=== PATIENT | female | born 1940 | race Caucasian/White ===

== ENCOUNTER 2019-06-10 07:32 | Day surgery (SDC) | payer MEDICARE, BC ==
[~2019-06-10 07:32] MED LIST: Buffered Lidocaine 1% SYRIN* 1 ML/SYRINGE INTRADERM ONE
[2019-06-10] MEDS ORDERED: Midazolam* 1 MG/ML 2 ML VIAL (2 MG) ONE (09:36)
[2019-06-10 11:05] VITALS: BP 134/52
--- NOTE | 2019-06-10 12:31 | OP ---
DATE OF OPERATION: 06/10/19 [facility] DATE OF : 40 SURGEON: Willie Price M.D. PREOPERATIVE DIAGNOSIS: Cataract, right eye. POSTOPERATIVE DIAGNOSIS: Cataract, right eye. OPERATIVE PROCEDURE: Extracapsular cataract extraction with intraocular lens implant, right eye. DESCRIPTION OF PROCEDURE: The patient was brought to the operating room after being given 1/2% Alcaine with epinephrine drops in the preoperative area. The eye was prepped and draped in the usual sterile fashion. Sterile drape and eyelid speculum were placed. Again, topical 1/2% Alcaine with epinephrine was given. A paracentesis incision was made at the 9 o'clock position with the No.75 blade. Clear cornea incision 2.2 x 2.2-mm was created at the 12 o'clock position starting at the anterior limbus using the 2.2-mm keratome. The anterior chamber was irrigated with 0.4 mL of 1% non-preservative intracameral lidocaine and filled with DisCoVisc. A capsulorrhexis was completed using the cystotome and the Utrata forceps. Hydrodissection was performed with balanced salt solution. The lens nucleus was removed with the Phacoemulsification handpiece without incident. Cortex was removed with the irrigation-aspiration handpiece. The capsular bag was re-inflated using DisCoVisc and an SN60WF 21.5 implant was inserted with the shooter. The irrigation-aspiration handpiece was used to remove all residual DisCoVisc. The eye was refilled with balanced salt solution and the wound checked and found to be watertight. Topical Maxitrol drops were given. [id number]/[facility] #: [id number] MTDD
[2019-06-10] MEDS ORDERED: Cyclopentolate 1% OPTH.SOL* 2 ML BTL ONE (13:49)
[2019-06-10] MEDS ORDERED: Neomycin/Polymy/Dex OPTH.SUSP* MAXITROL 0.1% 5 ML ONE (13:49)
[2019-06-10] MEDS ORDERED: Lidocaine 1% MPF ** 5 ML VIAL ONE (13:49)
[2019-06-10] MEDS ORDERED: Povidone Iodine 5% OPTH* 30 ML BTL ONE (13:49)
[2019-06-10] MEDS ORDERED: acetaZOLAMIDE TAB* 250 MG ONE (13:49)
[2019-06-10] MEDS ORDERED: Ketorolac 0.5% OPHTH (NF) 0.5 % 5 ML BTL ONE (13:49)
[2019-06-10] MEDS ORDERED: Phenylephrine OPHTH SOL 2.5%* 2 ML ONE (13:49)
[2019-06-10] MEDS ORDERED: Lidocaine 2% w/ EPI 1:200,000* 20 ML SDV VIAL ONE (13:49)
[2019-06-10] MEDS ORDERED: Proparacaine 0.5% OPHTH.SOL* 15 ML BTL ONE (13:50)
== END 2019-06-10 10:47 | disposition home or self-care (01) ==
LOC: OREAST 07:32
PROVIDERS: ATTEND Specialist
DX: H25.811 Combined forms of age-related cataract, right eye (principal); H40.053 Ocular hypertension, bilateral; I10 Essential (primary) hypertension; E11.9 Type 2 diabetes mellitus without complications; Z79.84 Long term (current) use of oral hypoglycemic drugs
CPT/HCPCS: A9270-GY; J2250; V2632

== ENCOUNTER 2019-06-17 08:51 | Day surgery (SDC) | payer MEDICARE, BC ==
[2019-06-17] MEDS ORDERED: Midazolam* 1 MG/ML 2 ML VIAL (2 MG) ONE ×2 (11:02→11:25)
--- NOTE | 2019-06-17 12:25 | OP ---
OPERATIVE NOTE: DATE OF OPERATION: 06/17/19 DATE OF : 40 SURGEON: Willie Price M.D. PREOPERATIVE DIAGNOSIS: Cataract, left eye. POSTOPERATIVE DIAGNOSIS: Cataract, left eye. OPERATIVE PROCEDURE: Extracapsular cataract extraction with intraocular lens implant, left eye. PROCEDURE: The patient was brought to the operating room after being given 1/2% Alcaine with epineph rine drops in the preoperative area. The eye was prepped and draped in the usual sterile fashion. S terile drape and eyelid speculum were placed. Again, topical 1/2% Alcaine with epinephrine was given . A paracentesis incision was made at the 3 o'clock position with the No.75 blade. Clear cornea inc ision 2.2 x 2.2-mm was created at the 6 o'clock position starting at the anterior limbus using the 2. 2-mm keratome. The anterior chamber was irrigated with 0.4 mL of 1% non-preservative intracameral li docaine and filled with DisCoVisc. A capsulorrhexis was completed using the cystotome and the Utrata forceps. Hydrodissection was performed with balanced salt solution. The lens nucleus was removed wi th the Phacoemulsification handpiece without incident. Cortex was removed with the irrigation-aspira tion handpiece. The capsular bag was re-inflated using DisCoVisc and an [id number] 22 implant was inser olivia with the shooter. The irrigation-aspiration handpiece was used to remove all residual DisCoVisc. The eye was refilled with balanced salt solution and the wound checked and found to be watertight. Topical Maxitrol drops were given. [id number]/[facility] #: [id number]
[2019-06-17] MEDS ORDERED: Phenylephrine OPHTH SOL 2.5%* 2 ML ONE (13:13)
[2019-06-17] MEDS ORDERED: Lidocaine 1% MPF ** 5 ML VIAL ONE (13:13)
[2019-06-17] MEDS ORDERED: Lidocaine 2% w/ EPI 1:200,000* 20 ML SDV VIAL ONE (13:13)
[2019-06-17] MEDS ORDERED: Ketorolac 0.5% OPHTH (NF) 0.5 % 5 ML BTL ONE (13:13)
[2019-06-17] MEDS ORDERED: acetaZOLAMIDE TAB* 250 MG ONE (13:13)
[2019-06-17] MEDS ORDERED: Neomycin/Polymy/Dex OPTH.SUSP* MAXITROL 0.1% 5 ML ONE (13:13)
[2019-06-17] MEDS ORDERED: Cyclopentolate 1% OPTH.SOL* 2 ML BTL ONE (13:13)
[2019-06-17] MEDS ORDERED: Proparacaine 0.5% OPHTH.SOL* 15 ML BTL ONE (13:13)
[2019-06-17] MEDS ORDERED: Povidone Iodine 5% OPTH* 30 ML BTL ONE (13:13)
[2019-06-17 14:06] VITALS: BP 125/49
== END 2019-06-17 12:02 | disposition home or self-care (01) ==
LOC: OREAST 08:51
PROVIDERS: ATTEND Specialist
DX: H25.812 Combined forms of age-related cataract, left eye (principal); H40.053 Ocular hypertension, bilateral; E11.9 Type 2 diabetes mellitus without complications; I10 Essential (primary) hypertension; Z96.1 Presence of intraocular lens
CPT/HCPCS: A9270-GY; J2250; V2632